=== PATIENT | female | born 1950 | race Caucasian/White ===

== ENCOUNTER 2019-02-15 20:56 | Emergency (ER) | payer MEDICARE, OTHER ==
[~2019-02-15] VITALS: Ht 160 cm; Wt 86.2 kg
[~2019-02-15 20:56] MED LIST: ACID REFLUX MED; AMLO10 PO; ANXIETY MED; ASPI81CH PO; Cipro250 MG PO; HTN MEDS; LIRA0.6P; METF500; METO25 PO; NAPR375 PO; Omeprazole20 M1 PO; RANI150; Zofran4 MG PO
[2019-02-15] MEDS ORDERED: DHEA PO (21:18)
[2019-02-15] MEDS ORDERED: VENL75ER (21:18)
[2019-02-15] MEDS ORDERED: MEGA RED 350 MG (21:19)
[2019-02-15] MEDS ORDERED: Vitamin D2000 UNIT (21:19)
[2019-02-15] MEDS ORDERED: Amaryl1 MG PO (21:19)
[2019-02-15] MEDS ORDERED: LEVSOD50 PO (21:20)
[2019-02-15] MEDS ORDERED: SITA100T2 PO (21:20)
[2019-02-15] MEDS ORDERED: Amoxicillin500 MG PO (21:48)
== END 2019-02-15 21:57 | disposition home or self-care (01) ==
LOC: ER 20:56
DX: R04.0 Epistaxis (principal); H66.92 Otitis media, unspecified, left ear; Z79.84 Long term (current) use of oral hypoglycemic drugs; Z79.82 Long term (current) use of aspirin; I10 Essential (primary) hypertension; E11.9 Type 2 diabetes mellitus without complications; J45.909 Unspecified asthma, uncomplicated
CPT/HCPCS: 99283

== ENCOUNTER → 2020-05-07 | Outpatient (CLI) | payer MEDICARE, OTHER ==
[~2020-05-07] MED LIST changes: +Amaryl1 MG PO; +Amoxicillin500 MG PO; +DHEA PO; +LEVSOD50 PO; +MEGA RED 350 MG; +SITA100T2 PO; +VENL75ER; +Vitamin D2000 UNIT
== END | disposition home or self-care (01) ==
LOC: PLD 10:06 → LAB SHORT 10:06
DX: D48.5 Neoplasm of uncertain behavior of skin (principal)
CPT/HCPCS: 88305

== ENCOUNTER → 2020-11-07 | Outpatient (CLI) | payer MEDICARE, OTHER | END | disposition home or self-care (01) | LOC: LAB SHORT 13:47 → LAB 13:47 | DX: D22.5 Melanocytic nevi of trunk (principal) | CPT/HCPCS: 88305 ==

== ENCOUNTER 2021-08-23 09:42 | Day surgery (SDC) | payer MEDICARE, OTHER ==
[~2021-08-23] VITALS: Ht 160 cm; Wt 84.0 kg
[~2021-08-23 09:42] MED LIST changes: -METF500; +METF500 PO; -VENL75ER; +VENL75ER PO
[2021-08-23] MEDS ORDERED: FAMO20 PO (10:00)
[2021-08-23] MEDS ORDERED: FURO40 PO (10:01)
[2021-08-23] MEDS ORDERED: FARXIGA10 MG PO (10:02)
[2021-08-23] MEDS ORDERED: Benicar40 MG PO (10:02)
[2021-08-23] MEDS ORDERED: ATOR40TA PO (10:03)
[2021-08-23] MEDS ORDERED: CLOP75 PO (10:03)
[2021-08-23] MEDS ORDERED: XYZAL5 MG PO (10:06)
--- NOTE | 2021-08-23 11:20 | NUR ---
PATIENT RESTING. AWAKENS EASILY. DR VASQUEZ IN TO SPEAK TO PATIENT. RIGHT TR BAND IN PLACE. WRIST BOARD IN PLACE. NO BLEEDING, NO HEMATOMA
--- NOTE | 2021-08-23 11:47 | NUR ---
PATIENT AMBULATED TO RESTROOM WITH STANDBY ASSIST.
--- NOTE | 2021-08-23 14:30 | NUR ---
AIR IN TR BAND HAS BEEN REMOVED BY TELMA KIM. TR BAND REMOVED. SITE SOFT AND NONTENDER. NO BLEEDING, NO HEMATOMA. CLOTH DOT PLACED TO SIE AND WRIST BOARD PLACED. IV SITE DCED WITH CATHETER INTACT. PATIENT AND VERBALIZED UNDERSTANDING OF DISCHARGE INSTRUCTIONS AND PRECAUTIONS. NO FURTHER QUESTIONS. PATIENT TRANSFERRED VIA WHEEL CHAIR BY ME TO WAITING CAR WITH DRIVING PATIENT HOME.
== END 2021-08-23 14:30 | disposition home or self-care (01) ==
LOC: MHTC 09:42
DX: I42.0 Dilated cardiomyopathy (principal); I25.10 Atherosclerotic heart disease of native coronary artery without angina pectoris; I34.0 Nonrheumatic mitral (valve) insufficiency; I25.2 Old myocardial infarction; I50.9 Heart failure, unspecified; E11.9 Type 2 diabetes mellitus without complications; J44.9 Chronic obstructive pulmonary disease, unspecified; E78.5 Hyperlipidemia, unspecified; Z88.8 Allergy status to other drugs, medicaments and biological substances; Z79.84 Long term (current) use of oral hypoglycemic drugs; I77.819 Aortic ectasia, unspecified site; I44.7 Left bundle-branch block, unspecified
CPT/HCPCS: 93458; 99152; C1769; C1887; C1894; J1644; J2250; J3010; J7030; J7050; Q9967